=== PATIENT | female | born 1990 | race Caucasian/White ===

== ENCOUNTER 2016-10-08 17:19 | Emergency (ER) | payer OTHER ==
--- NOTE | 2016-10-08 18:33 | PD ---
HPI Chief Complaint Decreased movement Date Seen: Oct 08, 2016 Time Seen: 18:29 Travel History International Travel<30 Days: No Contact w/Intl Traveler<30Days: No Known Affected Area: No History of Present Illness HPI 26-year-old who is at 34 weeks and 2 days complaints of decreased movement. Although the baby is moving she states that the movements haven't changed in intensity. She saw Dr. Richard's nurse practitioner in the office today and was told that her fundal height was a little small and then an ultrasound will be set up for her in the near future. No nonstress test was done and she was concerned as no monitoring was initiated. The baby has been moving well since she arrived to the hospital. Para: 0 : 1 History Past Medical History Medical History: Denies Significant Hx Past Surgical History Surgical History: No Previous Surgery Family History Family History: Negative Social History Alcohol Use: No Tobacco Use: No Substance Abuse: No Review of Systems Except as stated in HPI: all other systems reviewed are Neg Physical Exam Narrative GENERAL: Well-nourished, well-developed patient. SKIN: Warm and dry. HEAD: Normocephalic and atraumatic. EYES: No scleral icterus. No injection or drainage. ENT: No nasal drainage noted. Mucous membranes pink. Airway patent. NECK: Supple, trachea midline. No JVD. CARDIOVASCULAR: Regular rate and rhythm without murmurs, gallops, or rubs. RESPIRATORY: Breath sounds equal bilaterally. No accessory muscle use. BREASTS: Bilateral exam showed no masses , no retractions, no nipple discharge. ABDOMEN/GI: Abdomen soft, non-tender, bowel sounds present, no rebound, no guarding Gravid to [-] weeks size Fundal Height: [-32] GENITOURINARY: Deferred FHT's: Category: [1-] Baseline: 140 Reactive: Moderate Variability: Moderate with accelerations Decels: Absent EXTREMITIES: No cyanosis or edema. BACK: Nontender without obvious deformity. No CVA tenderness. NEUROLOGICAL: Awake and alert. Motor and sensory grossly within normal limits. Five out of 5 muscle strength in all muscle groups. Normal speech. Data Data Vital Signs Reviewed: Yes MDM Plan Patient at 34 weeks gestation with decreased movement, baby is now moving back to normal with a category 1 heart rate tracing. She will follow up with Dr. Richard's office to be set up for a growth ultrasound and will call them tomorrow. Continue with kick counts and hydration. Diagnosis Diagnosis: Primary Impression: Decreased movement affecting management of in third trimester Additional Impression: 34 weeks gestation of Disposition: 01 DISCHARGE HOME Condition: Stable Patient Instructions: General Instructions, Having Your Baby: The Labor Process (GEN), Movement (ED) Departure Forms: Tests/Procedures Catherine Mccartney MD Oct 08, 2016 18:33
== END 2016-10-08 18:30 | disposition home or self-care (01) ==
LOC: HOBED 17:19
DX: O36.8130 Decreased fetal movements, third trimester, not applicable or unspecified (principal); Z3A.34 34 weeks gestation of pregnancy
CPT/HCPCS: 59025

== ENCOUNTER → 2016-10-11 | Outpatient (CLI) | payer OTHER ==
[~2016-10-11] MED LIST: IBUP-232 PO; OXYC1TAB63 PO; PREN29TA PO
== END ==
LOC: HPND 07:50
PROVIDERS: ATTEND Obstetrics & Gynecology
DX: O36.5930 Maternal care for other known or suspected poor fetal growth, third trimester, not applicable or unspecified (principal)
CPT/HCPCS: 76816

== ENCOUNTER 2016-10-22 10:52 | Emergency (ER) | payer OTHER ==
--- NOTE | 2016-10-22 11:50 | PD ---
HPI Chief Complaint elevated BP in Dr. Richard's clinic Date Seen: Oct 22, 2016 Travel History International Travel<30 Days: No Contact w/Intl Traveler<30Days: No Known Affected Area: No History of Present Illness HPI Ms. Robert is a 26 yo G[address] of [address]. Richard at 36 2/7 weeks (SAM 11/17/2016) who presents for recommendation of Dr. Richard's office due to SBP 140/80 (per patient). Patient also reports history of elevated blood pressure of SBP 145 approximately 2 weeks prior. Patient's interval blood pressures have been normal, with average systolic pressure of approximately 115. She denies history of high blood pressure prior to . Patient denies headaches; she reports increased blurriness when reading over the past several weeks but states that this is mild. Mild urinary urgency; no dysuria. Normal movement. No vaginal bleeding. Patient reports chest pain several weeks ago for which she was evaluated with EKG (which was normal per patient); she denies any pain since this time. Patient denies nausea/vomiting, leg swelling, or other symptoms. Patient reports largely unremarkable history with exception of small size on ultrasound. Per EMR, patient has history of borderline IUGR so has been receiving weekly NSTs. Last US was performed 10/16: (BPP 10/10. Normal amniotic fluid. Umbilical artery with borderline high S/D flow.) Patient's next US/NST is tomorrow. Patient states GBS performed today at Dr. Richard's office. Para: 0 : 1 History Past Medical History Narrative Medical Pyelonephritis Obstetric History Obstetric History G1 getting weekly NST's for IUGR? Past Surgical History Narrative Surgical [place] teeth removal Family History Narrative Family History Unspecified cancer HTN DM Unspecified heart problems Social History Alcohol Use: No Tobacco Use: No Substance Abuse: No Allergies-Medications (Allergen,Severity, Reaction): Coded Allergies: Amoxicillin (Unverified Allergy, Unknown, 10/22/16) Bactrim (Unverified Allergy, Unknown, 10/22/16) Tetracycline (Unverified Allergy, Unknown, 10/22/16) Review of Systems General / Constitutional: No: Fever, Chills Eyes: Visual changes (blurriness reading over past several weeks, mild) HENT: No: Headaches Cardiovascular: No: Chest Pain or Discomfort (prior chest pain- EKG performed and was normal) Respiratory: No: Short of Breath Gastrointestinal: No: Nausea, Vomiting, Abdominal Pain Genitourinary: Urgency, No: Dysuria Physical Exam BP 122/76, 118/71 HR 86 T 98.2 RR 18 Narrative GENERAL: Well-nourished, well-developed patient. SKIN: Warm and dry. HEAD: Normocephalic and atraumatic. EYES: No scleral icterus. No injection or drainage. ENT: No nasal drainage noted. Mucous membranes pink. Airway patent. NECK: Supple, trachea midline. No JVD. CARDIOVASCULAR: Regular rate and rhythm without murmurs. Normal perfusion RESPIRATORY: CTAB, normal rate ABDOMEN/GI: Abdomen soft, non-tender, bowel sounds present, no rebound, no guarding Gravid EXTREMITIES: No cyanosis or edema. BACK: Nontender without obvious deformity. No CVA tenderness. NEUROLOGICAL: Awake and alert. Motor and sensory function grossly within normal limits. GENITOURINARY: Uterine Contractions: None on EFM FHT's: Category: 1 Baseline: 150 Reactive: Y Variability: Mod Decels: None Data Data Vital Signs Reviewed: Yes MDM Medical Record Reviewed: Yes Narrative Course / MDM 26 yo G1 patient of Dr. Richard at 36 2/7 weeks (SAM 11/17/2016) -Clinic BP of 140/80 today; prior SBP 145 2 weeks ago -No maternal symptoms -Borderline IUGR, high umbilical S/D flow on US; receiving weekly NST's -Cat 1 rhythm on EFM -No evidence of contractions Plan: -Monitor EFM -Trend BP Interval: Multiple blood pressures obtained over 20 minute intervals: 122/76, 118/71, 123/ 76 Gestation maintained category 1 rhythm Updated Plan: Normal blood pressures at OB ED are reassuring at this time; discussed with patient that no intervention is needed at this time due to normalization of blood pressures. Discussed with patient that her prior elevated blood pressures at clinic may signify increased risk of developing worsening hypertension during and /or preeclampsia at a later point in . Patient will follow-up as scheduled: NST tomorrow per Dr. Richard and clinic visit with Dr. Richard next week Seen and discussed with Dr. Mccartney Diagnosis Diagnosis: Primary Impression: Elevated blood pressure reading Additional Impression: Disposition: 01 DISCHARGE HOME Condition: Stable Patient Instructions: General Instructions Edvin Miranda MD R2 Oct 22, 2016 11:50
== END 2016-10-22 11:58 | disposition home or self-care (01) ==
LOC: HOBED 10:52
DX: O13.3 Gestational [pregnancy-induced] hypertension without significant proteinuria, third trimester (principal); Z3A.36 36 weeks gestation of pregnancy
CPT/HCPCS: 59025

== ENCOUNTER 2016-10-29 10:34 | Emergency (ER) | payer OTHER ==
[2016-10-29 11:42] LABS: MEAN CORPUSCULAR HGB CONC 36.1 % (32.0-36.0)
[2016-10-29 11:56] LABS: AUTOMATED NEUTROPHIL # 14.6 TH/MM3 (1.8-7.7); BASOPHIL # 0.1 TH/MM3 (0-0.2); BASOPHIL % 0.3 % (0.0-2.0); EOSINOPHIL % 0.1 % (0.0-4.0); HEMATOCRIT 34.9 % (35.0-46.0); LYMPH % 11.9 % (9.0-44.0); LYMPHOCYTE # 2.1 TH/MM3 (1.0-4.8); MEAN CELL VOLUME 87.2 FL (80.0-100.0); MEAN CORPUSCULAR HEMOGLOBIN 31.4 PG (27.0-34.0); MONO % 5.5 % (0.0-8.0); NEUT % 82.2 % (16.0-70.0); PLATELET COUNT 240 TH/MM3 (150-450); WHITE BLOOD COUNT 17.7 TH/MM3 (4.0-11.0)
[2016-10-29 11:59] LABS: HEMO FLAGS AUTO DIFF
[2016-10-29 12:16] LABS: INDIRECT BILIRUBIN 0.2 MG/DL (0.0-0.8); TOTAL BILIRUBIN ADULT 0.3 MG/DL (0.2-1.0); URIC ACID 5.6 MG/DL (2.6-6.0)
[2016-10-29 12:42] LABS: SCAN/DIFF AUTO DIFF CONFIRMED
--- NOTE | 2016-10-29 12:47 | PD ---
HPI Travel History International Travel<30 Days: No Contact w/Intl Traveler<30Days: No Known Affected Area: No History of Present Illness HPI Ms. Robert is a 26 yo G[address] of [address] Richard at 37 2/7 weeks (SAM 11/17/2016) who presents for recommendation of Dr. Richard's office due to SBP 140 (per patient). Patient was previously seen for elevated SBP of 140; she also had elevated SBP of 145. No history of high blood pressure prior to . Patient denies headaches; she reports seeing stars. No dysuria. No vaginal bleeding. No chest pain or SOB No nausea/vomiting, leg swelling, or other symptoms. Normal movement. Per EMR, patient has history of borderline IUGR so has been receiving weekly NSTs. Last US was performed 10/16: (BPP 04/15. Normal amniotic fluid. Umbilical artery with borderline high S/D flow.) US 10/24 with normal BPP and FABIANO. Para: 0 : 1 History Past Medical History Narrative Medical Pyelonephritis Obstetric History Obstetric History G1 Past Surgical History Narrative Surgical [place] teeth removal Family History Narrative Family History Unspecified cancer HTN DM Unspecified heart problems Social History Alcohol Use: No Tobacco Use: No Substance Abuse: No Allergies-Medications (Allergen,Severity, Reaction): Coded Allergies: Amoxicillin (Unverified Allergy, Unknown, 10/22/16) Bactrim (Unverified Allergy, Unknown, 10/22/16) Tetracycline (Unverified Allergy, Unknown, 10/22/16) Review of Systems Eyes: Blurred Vision (seeing stars occasionally, chronic) HENT: Headaches (occasional, chronic) Cardiovascular: No: Chest Pain or Discomfort Respiratory: No: Short of Breath Gastrointestinal: No: Abdominal Pain Genitourinary: No: Urgency, Dysuria Physical Exam BP 117/70's HR 70's Afebrile Narrative GENERAL: Well-nourished, well-developed patient. SKIN: Warm and dry. HEAD: Normocephalic and atraumatic. EYES: No scleral icterus. No injection or drainage. ENT: No nasal drainage noted. Mucous membranes pink. Airway patent. NECK: Supple, trachea midline. No JVD. CARDIOVASCULAR: Regular rate and rhythm without murmurs. Normal perfusion RESPIRATORY: CTAB, normal rate ABDOMEN/GI: Abdomen soft, non-tender, bowel sounds present, no rebound, no guarding Gravid EXTREMITIES: No cyanosis or edema. NEUROLOGICAL: Awake and alert. Motor and sensory function grossly within normal limits. GENITOURINARY: Uterine Contractions: Sporadic contraction FHT's: Category: 1 Baseline: 145 Reactive: Y Variability: Mod Decels: None Data Data Orders Hepatic Functional Panel (10/29/16 11:39) Complete Blood Count With Diff (10/29/16 11:39) Uric Acid (10/29/16 11:39) Hold Clot (10/29/16 11:39) Labs Laboratory Tests Test 10/29/16 11:29 White Blood Count 17.7 Red Blood Count 4.00 Hemoglobin 12.6 Hematocrit 34.9 Mean Corpuscular Volume 87.2 Mean Corpuscular Hemoglobin 31.4 Mean Corpuscular Hemoglobin 36.1 Concent Red Cell Distribution Width 13.0 Platelet Count 240 Mean Platelet Volume 9.2 Neutrophils (%) (Auto) 82.2 Lymphocytes (%) (Auto) 11.9 Monocytes (%) (Auto) 5.5 Eosinophils (%) (Auto) 0.1 Basophils (%) (Auto) 0.3 Neutrophils # (Auto) 14.6 Lymphocytes # (Auto) 2.1 Monocytes # (Auto) 1.0 Eosinophils # (Auto) 0.0 Basophils # (Auto) 0.1 CBC Comment AUTO DIFF Differential Comment AUTO DIFF CONFIRMED Uric Acid 5.6 Total Bilirubin 0.3 Direct Bilirubin 0.1 Indirect Bilirubin 0.2 Aspartate Amino Transf 19 (AST/SGOT) Alanine Aminotransferase 23 (ALT/SGPT) Alkaline Phosphatase 92 Total Protein 7.0 Albumin 3.0 Band and Hold MDM Medical Record Reviewed: Yes Narrative Course / MDM 26 yo G1 patient of [address]. Richard at 37 2/7 weeks (SAM 11/17/2016) -Clinic SBP of 140 today; prior SBP's 140-145 -No maternal symptoms -10/24 US with normal BPP and FABIANO -Cat 1 rhythm on EFM -Rare contractions Plan: -Monitor EFM -Trend BP -Obtain PREE labs as baseline Interval: Patient normotensive in OB ED, SBP <120 CBC- WBC 17.7, Hgb 12.6, PLT 240 Uric acid 5.6 Transaminases, BILI wnl Updated Plan: Due to reassuring blood pressures and CBC, uric acid, LFTs in OB ED, patient deemed stable for discharge home and follow-up with PCP in near future Again discussed with patient that she may be at risk of having hypertension during and/or preeclampsia at a later point in . Diagnosis Diagnosis: Primary Impression: Elevated blood pressure reading Disposition: 01 DISCHARGE HOME Condition: Stable Referrals: Claudette Richard MD 1 week Patient Instructions: General Instructions Edvin Miranda MD R2 Oct 29, 2016 12:47
--- NOTE | 2016-10-29 12:52 | PD ---
History of Present Illness Date Seen: Oct 29, 2016 History of Present Illness This patient is 26-year-old white female at 37 [address] Richard sent over for PI eval, patient has been having a headache and was sent over for blood pressure checks. She denies pain bleeding or ruptured membranes. Baby is active. heart rate tracing is reactive. her PIH lab all within normal limits. Her blood pressures been in the 110s over 60s here, she has no protein in her urine. The patient discharged today to return to home bed rest which she's been doing according to Dr. Richard's instruction Pete Rubin II, MD Oct 29, 2016 12:51
== END 2016-10-29 14:08 | disposition home or self-care (01) ==
LOC: HOBED 10:34
DX: O13.3 Gestational [pregnancy-induced] hypertension without significant proteinuria, third trimester (principal); Z3A.37 37 weeks gestation of pregnancy
CPT/HCPCS: 59025; 80076; 84550; 85025

== ENCOUNTER 2016-11-05 11:17 | Emergency (ER) | payer OTHER ==
--- NOTE | 2016-11-05 11:47 | PD ---
HPI Chief Complaint elevated BP in clinic Date Seen: November 05, 2016 Travel History International Travel<30 Days: No Contact w/Intl Traveler<30Days: No History of Present Illness HPI Ms. Robert is a 26 yo G[address] of [address] Richard at 38 2/7 weeks (SAM 11/17/2016) who presents for laboratory evaluation and monitoring per recommendation of Dr. Richard. Patient states that she had blood pressure of approximately 130s/70s in clinic today and persistent visual abnormalities (patient has been seen spot for approximately one month). Patient also reports intermittent headache. Per discussion with patient in EMR, patient is had intermittent systolic pressures in 140s during . Patient was last evaluated 10/29 for elevated blood pressure; CBC and CMP did not reveal platelet or LFT abnormalities. Patient reports mild hand swelling but denies lower extremity swelling. Patient does not report chest pain, shortness of breath, dysuria, nausea, or bowel abnormalities. Patient reports normal movement. No vaginal bleeding or concern for rupture membranes. Per EMR, patient has history of borderline IUGR so has been receiving weekly NSTs. Last US was performed 10/30: (BPP 10/10. Normal amniotic fluid. Umbilical artery with normal flow.) GBS negative : 1 History Past Medical History Narrative Medical Pyelonephritis Obstetric History Obstetric History G1 getting weekly NST's - prior borderline IUGR Past Surgical History Narrative Surgical [place] teeth removal Family History Narrative Family History Unspecified cancer HTN DM Unspecified heart problems Social History Alcohol Use: No Tobacco Use: No Substance Abuse: No Allergies-Medications (Allergen,Severity, Reaction): Coded Allergies: Amoxicillin (Unverified Allergy, Unknown, 10/22/16) Bactrim (Unverified Allergy, Unknown, 10/22/16) Tetracycline (Unverified Allergy, Unknown, 10/22/16) Review of Systems General / Constitutional: No: Fever Eyes: Visual changes HENT: Headaches Cardiovascular: No: Chest Pain or Discomfort Respiratory: No: Short of Breath Gastrointestinal: No: Nausea Genitourinary: No: Urgency Physical Exam BP 125/82 HR 98 RR 16 T 98 Narrative GENERAL: Well-nourished, well-developed patient. SKIN: Warm and dry. HEAD: Normocephalic and atraumatic. EYES: No scleral icterus. No injection or drainage. ENT: No nasal drainage noted. Mucous membranes pink. Airway patent. CARDIOVASCULAR: Regular rate and rhythm without murmurs, gallops, or rubs. RESPIRATORY:CTAB, normal rate ABDOMEN/GI: Abdomen soft, non-tender, bowel sounds present, no rebound, no guarding Gravid EXTREMITIES: No cyanosis or edema NEUROLOGICAL: Awake and alert. Motor and sensory function grossly within normal limits. GENITOURINARY: Membranes: Intact Uterine Contractions: occasional, >q5 min FHT's: Category: 1 Baseline: 150 Reactive: Y Variability: Mod Decels: None Data Data Vital Signs Reviewed: Yes Orders Cbc No Diff, Includes Plts (11/05/16 11:27) Comprehensive Metabolic Panel (11/05/16 11:28) Uric Acid (11/05/16 11:28) Urinalysis - C+S If Indicated (11/05/16 11:28) MDM Medical Record Reviewed: Yes Narrative Course / MDM 26 yo G1 patient of Dr. Richard at 38 2/7 weeks (SAM 11/17/2016) -Clinic BP in 130's/80's; prior SBPs in 140's -Persistent visual abnormality (sees spot x1 mo) and intermittent headaches -GBS- -Recent BPP 04/15 10/30 -Cat 1 rhythm on EFM -Occasional contractions Plan: -Monitor EFM -Trend BP -Will repeat CBC, CMP, urinary protein assessment, uric acid labs Edvin Miranda MD R2 November 05, 2016 11:47
[2016-11-05 12:49] LABS: BACTERIA, URINE RARE /hpf; BLOOD, URINE SMALL (NEG); COMMENT (UR) CULT NOT INDICATED; CULTURE IF INDICATED CULT NOT INDICATED; GLUCOSE,URINE NEG (NEG); KETONE, URINE NEG (NEG); NITRITE,URINE NEG (NEG); SQUAMOUS EPITHELIAL CELL URINE 3 /hpf (0-5); URINE COLOR LIGHT-YELLOW (YELLW/STRAW)
[2016-11-05 12:57] LABS: HEMATOCRIT 35.7 % (35.0-46.0); MEAN CELL VOLUME 87.4 FL (80.0-100.0); MEAN CORPUSCULAR HEMOGLOBIN 30.7 PG (27.0-34.0); MEAN CORPUSCULAR HGB CONC 35.1 % (32.0-36.0); PLATELET COUNT 238 TH/MM3 (150-450); RED BLOOD COUNT 4.09 MIL/MM3 (4.00-5.30); RED CELL DISTRIBUTION WIDTH 13.2 % (11.6-17.2); REVIEW FLAG FINAL; WHITE BLOOD COUNT 17.5 TH/MM3 (4.0-11.0)
[2016-11-05 13:17] LABS: ALKALINE PHOSPHATASE 99 U/L (45-117); ALT (GPT) 24 U/L (10-53); ANION GAP 12 MEQ/L (5-15); AST (GOT) 24 U/L (15-37); BICARBONATE 21.7 MEQ/L (21.0-32.0); BLOOD UREA NITROGEN 11 MG/DL (7-18); CHLORIDE 105 MEQ/L (98-107); GLOMERULAR FILTRATION RATE 113 ML/MIN (>89); POTASSIUM 3.9 MEQ/L (3.5-5.1); SODIUM (NA) 139 MEQ/L (136-145); TOTAL BILIRUBIN ADULT 0.3 MG/DL (0.2-1.0); URIC ACID 5.8 MG/DL (2.6-6.0)
--- NOTE | 2016-11-05 14:19 | PD ---
HPI Chief Complaint 6-year-old white female at [address] Richard sent over for PI eval, she has no OB problems no pain bleeding or ruptured membranes. Baby is active and heart rate tracing is reactive. She has had a persistent visual changes spots in front of her vision and eyes and her doctor is worried about that Date Seen: November 05, 2016 Travel History International Travel<30 Days: No Contact w/Intl Traveler<30Days: No Known Affected Area: No History of Present Illness HPI Primiparous patient with mild gestational hypertension and some visual changes at 38 weeks Para: 0 : 1 History Social History Alcohol Use: No Tobacco Use: No Substance Abuse: No Allergies-Medications (Allergen,Severity, Reaction): Coded Allergies: Amoxicillin (Unverified Allergy, Unknown, 10/22/16) Bactrim (Unverified Allergy, Unknown, 10/22/16) Tetracycline (Unverified Allergy, Unknown, 10/22/16) Review of Systems General / Constitutional: No: Fever, Weight Gain, Chills, Other Eyes: Visual changes, No: Diploplia, Blurred Vision, Pain, Photophobia HENT: No: Headaches, Vertigo, Lightheadedness Cardiovascular: No: Irregular Rhythm, Chest Pain or Discomfort, Palpitations, Tachycardia, Syncope, Varicosities, Edema, Cyanosis Respiratory: No: Cough, Short of Breath, Other Gastrointestinal: No: Nausea, Vomiting, Diarrhea Genitourinary: No: Decreased Urinary Output, Oliguria Musculoskeletal: No: Limited ROM, Weakness, Cramping, Edema, Pain Skin: No Rash, No Itching, No Dryness, No Lumps, No Change in Pigmentation, No Change in Nails, No Alopecia, No Lesions Neurologic: No: Weakness, Dizziness, Syncope, Focal Abnormalities, Coordination Problem, Headache, Slurred Speech, Seizures Psychiatric: No: Depression, Suicidal Ideations, Homicidal Ideation Endocrine: No: Heat Intolerance, Cold Intolerance, Polydipsia, Polyuria, Other Physical Exam Narrative GENERAL: Well-nourished, well-developed patient. SKIN: Warm and dry. HEAD: Normocephalic and atraumatic. EYES: No scleral icterus. No injection or drainage. ENT: No nasal drainage noted. Mucous membranes pink. Airway patent. NECK: Supple, trachea midline. No JVD. CARDIOVASCULAR: Regular rate and rhythm without murmurs, gallops, or rubs. RESPIRATORY: Breath sounds equal bilaterally. No accessory muscle use. BREASTS: Bilateral exam showed no masses , no retractions, no nipple discharge. ABDOMEN/GI: Abdomen soft, non-tender, bowel sounds present, no rebound, no guarding Gravid to [-38] weeks size Fundal Height: [38-] FHT's: Category: [1-] Baseline: [133-] Reactive: [-yes] Variability: [-mod] Decels: [none-] EXTREMITIES: No cyanosis or edema. BACK: Nontender without obvious deformity. No CVA tenderness. NEUROLOGICAL: Awake and alert. Motor and sensory grossly within normal limits. Five out of 5 muscle strength in all muscle groups. Normal speech. Data Data Orders Cbc No Diff, Includes Plts (11/05/16 11:27) Comprehensive Metabolic Panel (11/05/16 11:28) Uric Acid (11/05/16 11:28) Urinalysis - C+S If Indicated (11/05/16 11:28) Labs Laboratory Tests Test 11/05/16 11:30 White Blood Count 17.5 Red Blood Count 4.09 Hemoglobin 12.5 Hematocrit 35.7 Mean Corpuscular Volume 87.4 Mean Corpuscular Hemoglobin 30.7 Mean Corpuscular Hemoglobin 35.1 Concent Red Cell Distribution Width 13.2 Platelet Count 238 Mean Platelet Volume 9.7 Urine Color LIGHT-YELLOW Urine Turbidity CLEAR Urine pH 7.0 Urine Specific Outlook 1.006 Urine Protein NEG Urine Glucose (UA) NEG Urine Ketones NEG Urine Occult Blood SMALL Urine Nitrite NEG Urine Bilirubin NEG Urine Urobilinogen LESS THAN 2.0 Urine Leukocyte Esterase LARGE Urine WBC 2 Urine Squamous Epithelial 3 Cells Urine Bacteria RARE Microscopic Urinalysis Comment CULT NOT INDICATED Sodium Level 139 Potassium Level 3.9 Chloride Level 105 Carbon Dioxide Level 21.7 Anion Gap 12 Blood Urea Nitrogen 11 Creatinine 0.64 Estimat Glomerular Filtration 113 Rate Random Glucose 80 Uric Acid 5.8 Calcium Level 8.9 Total Bilirubin 0.3 Aspartate Amino Transf 24 (AST/SGOT) Alanine Aminotransferase 24 (ALT/SGPT) Alkaline Phosphatase 99 Total Protein 6.9 Albumin 2.9 MDM Interpretation(s) Since a 26-year-old primiparous patient at 38 weeks sent over from her doctor's office for PI eval, all lab is within normal limits, urinalysis negative for protein blood pressures been stable all less than 140/90 Plan I discussed this case with and he agreed that we could send the patient home today to bed rest only getting epidural bathroom and eat in to see him in 2 days for repeat evaluation Diagnosis Diagnosis: Primary Impression: Visual changes Disposition: 01 DISCHARGE HOME Condition: Stable Patient Instructions: General Instructions Departure Forms: Tests/Procedures Pete Rubin II, MD November 05, 2016 14:18
[2016-11-06] MEDS ORDERED: PREN29TA PO (10:44)
== END 2016-11-05 14:30 | disposition home or self-care (01) ==
LOC: HOBED 11:17
DX: O26.93 Pregnancy related conditions, unspecified, third trimester (principal); Z3A.38 38 weeks gestation of pregnancy; H53.9 Unspecified visual disturbance
CPT/HCPCS: 59025; 80053; 81001; 84550; 85027

== ENCOUNTER 2016-11-06 10:17 | Inpatient (IN) | payer OTHER ==
[~2016-11-06] VITALS: Ht 162.6 cm; Wt 90.3 kg
[2016-11-06] MEDS ORDERED: PREN29TA PO (10:44)
[2016-11-06 11:59] LABS: BASOPHIL # 0.1 TH/MM3 (0-0.2); BASOPHIL % 0.3 % (0.0-2.0); EOSINOPHIL # 0.1 TH/MM3 (0-0.4); EOSINOPHIL % 0.5 % (0.0-4.0); HEMATOCRIT 36.9 % (35.0-46.0); HEMO FLAGS DIFF FINAL; LYMPH % 15.4 % (9.0-44.0); LYMPHOCYTE # 2.6 TH/MM3 (1.0-4.8); MEAN CELL VOLUME 87.8 FL (80.0-100.0); MEAN CORPUSCULAR HEMOGLOBIN 30.1 PG (27.0-34.0); MEAN CORPUSCULAR HGB CONC 34.2 % (32.0-36.0); MONO % 6.1 % (0.0-8.0); NEUT % 77.7 % (16.0-70.0); PLATELET COUNT 241 TH/MM3 (150-450); WHITE BLOOD COUNT 16.7 TH/MM3 (4.0-11.0)
[2016-11-06] MEDS ORDERED: LACTATED RINGER'S 1000 ML INJ 1,000 ML IV PRN (12:24)
[2016-11-06] MEDS ORDERED: SODIUM CHLOR 0.9% 1000 ML INJ 1,000 ML OTHER PRN (12:24)
[2016-11-06 12:29] LABS: BACTERIA, URINE RARE /hpf; BLOOD, URINE NEG (NEG); COMMENT (UR) CULT NOT INDICATED; CULTURE IF INDICATED CULT NOT INDICATED; GLUCOSE,URINE NEG (NEG); HYALINE CAST, URINE 1 /lpf (RARE); KETONE, URINE NEG (NEG); MUCUS URINE FEW /lpf (OCC); NITRITE,URINE NEG (NEG); SQUAMOUS EPITHELIAL CELL URINE 3 /hpf (0-5); URINE COLOR YELLOW (YELLW/STRAW)
[2016-11-06] MEDS ORDERED: OXYTOCIN 30 UNITS-500ML PREMIX 500 ML IV ONE (12:30)
[2016-11-06] MEDS ORDERED: LIDOCAINE HCL 1% 50 ML VIAL INFIL PRN (12:30)
[2016-11-06] MEDS ORDERED: SODIUM CHLORIDE 0.9% FLUSH 10 ML FLUSH IV FLUSH PRN (12:30)
[2016-11-06] MEDS ORDERED: ONDANSETRON HCL 4 MG/2 ML VIAL IV PRN (12:30)
[2016-11-06] MEDS ORDERED: SODIUM CHLORID 0.9% 500 ML INJ 500 ML IV PRN (12:30)
[2016-11-06] MEDS ORDERED: LIDOCAINE HCL 1% 50 ML VIAL I-DERMAL PRN (12:30)
[2016-11-06] MEDS ORDERED: MINERAL OIL 10 ML VIAL TOPICAL PRN (12:30)
[2016-11-06] MEDS ORDERED: CITRIC ACID-SODIUM CITRATE LIQ 30 ML UDC PO SCH (12:30)
[2016-11-06] MEDS ORDERED: SODIUM CHLOR 0.9% 1000 ML INJ 1,000 ML IV PRN (12:44)
[2016-11-06] MEDS ORDERED: MISOPROSTOL 25 MCG SUPP VAGINAL ONE ×2 (13:00→18:15)
[2016-11-06] MEDS: LACTATED RINGER'S 1000 ML INJ 1,000 ML IV SCH ×3 (13:03→21:00)
[2016-11-06 13:09] VITALS: RESP 18
[2016-11-06 13:10] VITALS: BP 127/70; PULSE 73
[2016-11-06 13:56] VITALS: RESP 18
[2016-11-06 13:57] VITALS: BP 113/72; PULSE 75
[2016-11-06 13:59] VITALS: TEMP 98.3
--- NOTE | 2016-11-06 14:06 | MH ---
cc: JOSETTE RICHARD DATE OF ADMISSION: 11/06/2016 ADMISSION DIAGNOSIS 1. Intrauterine at 38+ weeks. 2. Oligohydramnios. HISTORY OF PRESENT ILLNESS Ms. Robert is a 26-year-old white female, para 0-0-0-0 who by ultrasound and early dates puts her at 38+ weeks. She was having some problems with blood pressure and also with scotoma and borderline IUGR. Because of these problems they recommended she get once weekly testing. Testing today for the biophysical was excellent but her amniotic fluid level was 4. Because of this we are admitting her. I had a long discussion about risks and benefits of induction versus primary section. Her cervix is really not inducible. Her Eason score is terrible but will try to induce her with some Cytotec tonight and give her Pitocin tomorrow, and hopefully can accomplish a vaginal delivery. PAST OB HISTORY Para 0-0-0-0. Blood type is A+. Her GBS is negative. All her labs are normal. 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 and GC were also negative in April 2016. PAST SURGICAL HISTORY [place] tooth removal. PAST MEDICAL HISTORY Hidradenitis suppurativa and psoriasis. SOCIAL HISTORY She is . She does not smoke, drink or take drugs. FAMILY HISTORY Her family history is remarkable for high blood pressure, high cholesterol, alcohol and drug abuse, and lung cancer and melanoma in her father. ALLERGIES 1. TETRACYCLINE. 2. AMOXICILLIN. 3. SULFA DRUGS. MEDICATIONS Current medications are vitamins one p.o. q. day. PHYSICAL EXAMINATION GENERAL: A well-developed, well-nourished female in no acute distress. She is resting comfortably in the bed. VITAL SIGNS: Blood pressure is 128/72. Her weight is 199. HEENT: Normocephalic, atraumatic. NECK: Supple. Trache is midline. No thyromegaly or adenopathy. CHEST: Clear to auscultation. HEART: Regular rate without murmur or gallop. ABDOMEN: Gravid, nontender. The fundus is nontender. PELVIC: External genitalia is normal. Vagina is clean. The cervix is closed, non-effaced and -1 station. EXTREMITIES: No clubbing, cyanosis, edema. Her DTRs are slightly brisk at +3. ASSESSMENT AND PLAN 1. Intrauterine at 38+ weeks. 2. Oligohydramnios. Will go ahead and give her Cytotec overnight and try to give her some Pitocin in the morning. Hopefully we can accomplish a vaginal delivery. 3. Labile blood pressures during the . She has been seen on the unit several times to rule out preeclampsia. Her most recent visit was yesterday and everything was normal. She was having some scotoma, however, this is completely resolved now. R. Josette Richard MD RJV/KELLEY /1:45 PM /1:54 PM
[2016-11-06] MEDS ORDERED: ZOLPIDEM TARTRATE 5 MG TAB PO PRN (18:15)
[2016-11-06] MEDS ORDERED: SODIUM CHLORIDE 0.9% FLUSH 10 ML FLUSH IV FLUSH SCH (21:00)
--- NOTE | 2016-11-06 22:27 | PD.LABORPN ---
Subjective Subjective Called to evaluate patient by Dr Richard. Cytotec given for ripening at 38-39 weeks gestation due to oligohydramnios. Objective Objective Pelvic Exam: Cervix: [midposition-] Dilatation: [1-2] Effacement: [50-] Station: [-2-] Presentation: [-] Membranes: [intact or ruptured]Artificial rupture of membranes, IUPC and FSE placed. Clear fluid obtained Uterine Contractions: [-] FHT's: Category: [2-] Baseline: [150-] Reactive: [-moderate Variability: [-moderate] Decels: [-variable and late FHR decelerations with approx 50% of contractions ] Amnioinfusion started, left lateral maternal position, and supplemental oxygen with resolution of decelerations and Category 1 FHR tracing. Assessment/Plan Assessment and Plan 38-39 weeks with decreased amniotic fluid, s/p cytotec placement at 1800. Amnioinfusion for variable declerations, resolution at this point of FHR decelerations Catherine Mccartney MD November 06, 2016 22:27
[2016-11-07] MEDS: LACTATED RINGER'S 1000 ML INJ 1,000 ML IV SCH (02:07)
[2016-11-07] MEDS ORDERED: OXYTOCIN 30 UNITS/NS 500ML PREMIX IV SCH ×2 (03:00)
--- NOTE | 2016-11-07 07:03 | PD.LABORPN ---
Subjective Subjective Doing well, got some sleep UCs are painful but not enough for medicine Objective Objective Pelvic Exam: Cervix: [] Dilatation: [2-3] Effacement: [-] Station: [-] Presentation: [-] Membranes: [intact or ruptured] Uterine Contractions: [-] FHT's: Category: [1] Baseline: [150s] Reactive: [yes] Variability: [-] Decels: [occasional varible, occasional possible lates] Assessment/Plan Assessment and Plan 1. IUP at 38/4 2. Oligiohydramnios for induction, Dr Mccartney placed IUPC last nite and she is having occasional decels but the strip looks good. Will start low dose pitocin as she is having occasional doublets. Feel the chance of a vaginal delivery is fairly good but have discussed the option of a C/S in some detail. 3. Labile BPs she is normotensive during this admission. No more scotoma. Claudette Richard MD November 07, 2016 07:03
[2016-11-07] MEDS ORDERED: fentaNYL 2MCG-BUPIV 0.125% INJ 100 ML ONE (07:56)
[2016-11-07] MEDS ORDERED: ePHEDrine/NS 25 MG/5 ML SYR ONE ×2 (07:56→09:56)
[2016-11-07] MEDS ORDERED: MORPHINE SULFATE PF 5 MG/10 ML VIAL ONE (09:56)
[2016-11-07] MEDS ORDERED: ONDANSETRON HCL 4 MG/2 ML VIAL ONE (09:56)
[2016-11-07] MEDS ORDERED: OXYTOCIN 10 UNIT/ML AMP ONE (09:56)
[2016-11-07] MEDS ORDERED: ceFAZolin INJ 1,000 MG VIAL ONE (10:04)
[2016-11-07] MEDS ORDERED: fentaNYL 2MCG-BUPIV 0.125% 100 ML EPIDURAL SCH (10:15)
[2016-11-07] MEDS ORDERED: DO NOT ADMINISTER ANTICOAGULANTS PRN (10:15)
[2016-11-07] MEDS ORDERED: ePHEDrine/NS 25 MG/5 ML SYR IV PRN (10:15)
[2016-11-07] MEDS ORDERED: LACTATED RINGER'S 1000 ML IV SCH (10:15)
[2016-11-07] MEDS ORDERED: LACTATED RINGER'S 1000 ML IV ONE (10:15)
[2016-11-07] MEDS ORDERED: NO SYSTEM NARCOTICS PRN (10:15)
[2016-11-07] MEDS ORDERED: ceFAZolin 2 GM PREMIX 50 ML IV SCH (10:30)
[2016-11-07] MEDS ORDERED: CITRIC ACID-SODIUM CITRATE LIQ 30 ML UDC PO SCH (10:30)
[2016-11-07] MEDS ORDERED: oxyCODONE/ACETAMINOPHEN 5 MG/325 MG TAB PO PRN (11:45)
[2016-11-07] MEDS ORDERED: ACETAMINOPHEN 1000 MG/100 ML VIAL IV ONE ×2 (11:45→12:10)
[2016-11-07] MEDS ORDERED: SODIUM CHLORIDE 0.9% FLUSH 10 ML FLUSH IV FLUSH PRN (11:45)
[2016-11-07] MEDS ORDERED: DOCUSATE SODIUM 50 MG/SENNA 8.6 MG TAB PO PRN (11:45)
[2016-11-07] MEDS ORDERED: SIMETHICONE 80 MG CHEWABLE TAB PO PRN (11:45)
[2016-11-07] MEDS ORDERED: OXYTOCIN 30 UNITS-500ML PREMIX 500 ML IV ONE (11:45)
[2016-11-07] MEDS ORDERED: LACTATED RINGER'S 1000 ML INJ 1,000 ML IV ONE (12:05)
[2016-11-07] MEDS ORDERED: OXYTOCIN 30 UNITS-500ML PREMIX 500 ML ONE (12:10)
--- NOTE | 2016-11-07 12:32 | MP ---
cc: JOSETTE RICHARD DATE OF SURGERY 11/07/2016 PREOPERATIVE DIAGNOSIS 1. Intrauterine at 38 weeks 4 days 2. Borderline IUGR 3. Oligohydramnios 4. Non-reassuring strip POSTOPERATIVE DIAGNOSIS 1. Intrauterine at 38 weeks 4 days 2. Borderline IUGR 3. Oligohydramnios 4. Non-reassuring strip PROCEDURE Primary low transverse section ANESTHESIA Epidural SURGEON Bry Richard MD FINDINGS A normal female infant with good 's, weight 5 pounds 4 ounces, normal uterus, normal tubes, normal ovaries, normal cul-de-sacs. COMPLICATIONS None COUNTS Correct ESTIMATED BLOOD LOSS 500 cc FLUIDS Crystalloids CONDITION The patient tolerated procedure well and went to the recovery room in good condition. INDICATIONS FOR THE PROCEDURE This patient was being seen by the diagnostics yesterday and was found to have oligohydramnios. She had been seen several times for borderline high blood pressure, but that was not the issue. She did have scotoma, but that has resolved as well. Because of the oligohydramnios and her cervix needed to be ripened, we put her in last night. She did well. She had a couple variables starting off, but nothing of too much concern. She came in early this morning. She was still having some variables with occasional lates, but I felt like there was a descent chance that she would be able to have this baby vaginal since it was so small, but probably did not have a great reserve. Right before the surgery, she started having repetitive lates and despite positioning, IV fluid bolus, nothing helped and we decided to proceed with a section for a non-reassuring strip. PROCEDURE IN DETAIL The patient was taken to the operating room, identified by name band and verbally. The time out was done and patient was prepped and draped in the usual sterile fashion for section. A Pfannenstiel incision was made, carried down to the fascia. The fascia was taken off the rectus muscle by blunt and sharp dissection. The rectus muscles were spread bluntly and the peritoneum entered under direct vision without difficulty. The incision was extended and a bladder blade was placed. A bladder flap was created in the usual fashion and the uterus was incised transversely along the lower uterine segment. Once the uterine cavity was entered, clear fluid was noted. The baby's head was very low in the pelvis after pushing for two hours and the vertex was grasped. With fundal pressure, we could not quite get the head to deliver, so we used a suction device which the baby delivered easily. The hypopharynx and nasopharynx were suctioned and the remainder of the infant was delivered without difficulty. The cord doubly clamped and cut and handed to the resuscitation team who was present. The cord blood was obtained and the placenta was delivered manually. The uterus was curettaged twice with a wet lap and the uterine incision was repaired with 0 Vicryl in a running locking fashion in two layers, the second layer imbricating the first. Once this had been accomplished, all incisions were carefully inspected. Hemostasis was excellent. The uterus was delivered back into the abdomen and the gutters were cleaned of blood and debris. The rectus muscles were reapproximated with 0 Vicryl in a running fashion and the fascia was repaired with 0 Vicryl in a running fashion bilaterally. The subcu was repaired with two layers of 3-0 Vicryl and the skin was repaired with a 4-0 Monocryl in a subcuticular fashion. The wound was sterilely dressed. She tolerated the procedure well and went to the recovery room in satisfactory condition. R. MD ANGELES Aguirre/DYLAN /11:40 AM /12:23 PM
[2016-11-07 13:30] VITALS: BP 116/70; PULSE 65; RESP 16; TEMP 97.9
[2016-11-07] MEDS ORDERED: NON-FORMULARY DRUG IM ONE (16:00)
[2016-11-07] MEDS ORDERED: LACTATED RINGER'S 1000 ML INJ 1,000 ML IV SCH (16:39)
[2016-11-07 17:14] VITALS: BP 134/75; PULSE 62; RESP 14; TEMP 98.4
[2016-11-07 19:30] VITALS: BP 117/77; PULSE 65; RESP 18; TEMP 98.5
[2016-11-07] MEDS ORDERED: SODIUM CHLORIDE 0.9% FLUSH 10 ML FLUSH IV FLUSH SCH (21:00)
[2016-11-07] MEDS: ONDANSETRON HCL 4 MG/2 ML VIAL IV PUSH PRN (21:23)
[2016-11-07] MEDS: oxyCODONE/ACETAMINOPHEN 5 MG/325 MG TAB PO PRN (21:23)
[2016-11-07] MEDS: IBUPROFEN 600 MG TAB PO PRN (21:24)
[2016-11-07] MEDS ORDERED: OXYTOCIN 30 UNITS-500ML PREMIX 500 ML IV PRN (21:45)
[2016-11-08 06:00] VITALS: BP 130/81; PULSE 83; RESP 16; TEMP 98.4
[2016-11-08 06:05] LABS: AUTOMATED NEUTROPHIL # 12.2 TH/MM3 (1.8-7.7); BASOPHIL % 0.3 % (0.0-2.0); EOSINOPHIL % 0.2 % (0.0-4.0); HEMATOCRIT 29.9 % (35.0-46.0); HEMO FLAGS DIFF FINAL; LYMPH % 15.6 % (9.0-44.0); LYMPHOCYTE # 2.4 TH/MM3 (1.0-4.8); MEAN CELL VOLUME 88.6 FL (80.0-100.0); MEAN CORPUSCULAR HEMOGLOBIN 30.4 PG (27.0-34.0); MEAN CORPUSCULAR HGB CONC 34.3 % (32.0-36.0); MONO % 5.8 % (0.0-8.0); NEUT % 78.1 % (16.0-70.0); PLATELET COUNT 177 TH/MM3 (150-450); RED BLOOD COUNT 3.37 MIL/MM3 (4.00-5.30); RED CELL DISTRIBUTION WIDTH 13.1 % (11.6-17.2); WHITE BLOOD COUNT 15.6 TH/MM3 (4.0-11.0)
[2016-11-08] MEDS: oxyCODONE/ACETAMINOPHEN 5 MG/325 MG TAB PO PRN ×4 (06:07→20:28)
[2016-11-08] MEDS: ONDANSETRON HCL 4 MG/2 ML VIAL IV PUSH PRN (06:08)
[2016-11-08] MEDS: IBUPROFEN 600 MG TAB PO PRN ×3 (06:08→20:28)
[2016-11-08 07:42] VITALS: BP 123/80; PULSE 95; RESP 17; TEMP 97.5
--- NOTE | 2016-11-08 08:04 | HHI.OB ---
Subjective Post Operative Day: 1 Remarks Doing well , pain is well controlled Baby is good. Eating is ok Objective Vitals/I&O Vital Signs Date Time Temp Pulse Resp B/P Pulse Ox O2 Delivery O2 Flow Rate FiO2 11/08/16 07:42 97.5 95 17 123/80 11/08/16 06:00 98.4 11/08/16 06:00 83 16 130/81 11/07/16 19:30 98.5 65 18 117/77 11/07/16 17:14 98.4 62 14 134/75 11/07/16 13:30 97.9 11/07/16 13:30 65 16 116/70 Result Diagram: 11/08/16 0505 Objective Remarks GENERAL: Well-nourished, well-developed patient. CARDIOVASCULAR: Regular rate and rhythm without murmurs, gallops, or rubs. RESPIRATORY: Breath sounds equal bilaterally. No accessory muscle use. ABDOMEN/GI: Abdomen soft, non-tender, bowel sounds present. Incision: Clean, dry and intact. Fundus: Firm, non-tender at umbilicus. GENITOURINARY: Light to moderate bleeding. EXTREMITIES: No cyanosis or edema, non-tender, without signs of DVT. Medications and IVs Current Medications Medications (Trade) Dose Ordered Sig/Alma Delia Route Start Time Stop Time Status Last Admin (Lr 1000 ml Inj) 1,000 ml @ 100 mls/hr Q10H IV 11/07/16 16:39 11/08/16 12:38 (NS Flush) 2 ml BID IV FLUSH 11/07/16 21:00 11/07/16 21:26 (NS Flush) 2 ml UNSCH PRN IV FLUSH 11/07/16 11:45 (Mylicon Chew) 80 mg QID PRN PO 11/07/16 11:45 (Motrin) 600 mg Q6H PRN PO 11/07/16 11:45 11/08/16 06:08 (Percocet 5-325 Mg) 1 tab Q4H PRN PO 11/07/16 11:45 11/08/16 06:07 (Percocet 5-325 Mg) 2 tab Q4H PRN PO 11/07/16 11:45 (Chantel-Colace) 2 tab Q12H PRN PO 11/07/16 11:45 (M-M-R Ii Inj) 0.5 ml ONCE ONCE SQ 11/08/16 16:00 11/08/16 16:01 (Boostrix Inj) 0.5 ml ONCE ONCE IM 11/08/16 16:00 11/08/16 16:01 (Zofran Inj) 4 mg Q6H PRN IV PUSH 11/07/16 11:45 11/08/16 06:08 Assessment/Plan Assessment and Plan POD #1 Doing well Routine care. Claudette Richard MD November 08, 2016 08:04
[2016-11-08] MEDS ORDERED: IBUP-232 PO (08:07)
[2016-11-08] MEDS ORDERED: OXYC1TAB63 PO (08:07)
[2016-11-08] MEDS ORDERED: DIPHTH/TETANUS/ACEL PERTUSSIS (BOOSTER) 0.5 ML VIAL/PFS IM ONE (16:00)
[2016-11-08] MEDS ORDERED: MEASLES, MUMPS, RUBELLA VACCINE 0.5 ML VIAL SQ ONE (16:00)
[2016-11-08 19:45] VITALS: BP 116/73; PULSE 81; RESP 16; TEMP 98.8
[2016-11-09] MEDS: oxyCODONE/ACETAMINOPHEN 5 MG/325 MG TAB PO PRN ×3 (01:51→12:43)
[2016-11-09] MEDS: IBUPROFEN 600 MG TAB PO PRN (08:35)
[2016-11-09 08:54] VITALS: BP 124/72; PULSE 98; RESP 16; TEMP 98
[2016-11-09 09:46] VITALS: RESP 18
--- NOTE | 2016-11-09 12:21 | HHI.OB ---
Subjective Post Operative Day: 2 Remarks doing very well milk coming in Objective Vitals/I&O Vital Signs Date Time Temp Pulse Resp B/P Pulse Ox O2 Delivery O2 Flow Rate FiO2 11/09/16 09:46 18 11/09/16 09:46 18 11/09/16 08:54 98.0 98 16 124/72 11/08/16 19:45 98.8 81 16 116/73 Result Diagram: 11/08/16 0505 Objective Remarks GENERAL: Well-nourished, well-developed patient. CARDIOVASCULAR: Regular rate and rhythm without murmurs, gallops, or rubs. RESPIRATORY: Breath sounds equal bilaterally. No accessory muscle use. ABDOMEN/GI: Abdomen soft, non-tender, bowel sounds present. Incision: Clean, dry and intact. Fundus: Firm, non-tender at umbilicus. GENITOURINARY: Light to moderate bleeding. EXTREMITIES: No cyanosis or edema, non-tender, without signs of DVT. Medications and IVs Current Medications Medications (Trade) Dose Ordered Sig/Alma Delia Route Start Time Stop Time Status Last Admin (NS Flush) 2 ml BID IV FLUSH 11/07/16 21:00 11/07/16 21:26 (NS Flush) 2 ml UNSCH PRN IV FLUSH 11/07/16 11:45 (Mylicon Chew) 80 mg QID PRN PO 11/07/16 11:45 (Motrin) 600 mg Q6H PRN PO 11/07/16 11:45 11/09/16 08:35 (Percocet 5-325 Mg) 1 tab Q4H PRN PO 11/07/16 11:45 11/09/16 08:35 (Percocet 5-325 Mg) 2 tab Q4H PRN PO 11/07/16 11:45 (Chantel-Colace) 2 tab Q12H PRN PO 11/07/16 11:45 11/09/16 08:36 (Zofran Inj) 4 mg Q6H PRN IV PUSH 11/07/16 11:45 11/08/16 06:08 Assessment/Plan Assessment and Plan POD #2 ready for discharge RTO one week reviewed engorgement and signs to watch for Jennifer Peacock MD November 09, 2016 12:21
--- NOTE | 2016-11-09 12:39 | HHI.DCPOC ---
Discharge Care Plan Report Symptoms to Your Doctor -Temperate above 100.5 degrees -Redness, of incision or excessive or foul smelling drainage -Unusual pain or calf pain -Increased vaginal bleeding -Painful or difficulty urinating -Feelings of extreme sadness or anxiety after 2 weeks Goals to Promote Your Health * To prevent worsening of your condition and complications * To maintain your health at the optimal level Directions to Meet Your Goals Take your medications as prescribed Follow your dietary instruction Follow activity as directed Ensure plenty of rest for recovery Drink fluids for hydration Keep your appointments as scheduled Take your immunizations and boosters as scheduled If your symptoms worsen call your PCP, if no PCP go to Urgent Care Center or Emergency Room Smoking is Dangerous to Your Health. Avoid second hand smoke Call the 24-hour crisis hotline for domestic abuse at Jennifer Peacock MD November 09, 2016 12:38
== END 2016-11-09 14:07 | disposition home or self-care (01) | DRG 766 ==
LOC: H2EA 10:17 → H1EA 11-07 12:56
PROVIDERS: ADMIT Obstetrics & Gynecology; ATTEND Obstetrics & Gynecology
PROC: 3E0P7GC Introduction of Other Therapeutic Substance into Female Reproductive, Via Natural or Artificial Opening (ICD-10-PCS; 2016-11-06)
PROC: 10907ZC Drainage of Amniotic Fluid, Therapeutic from Products of Conception, Via Natural or Artificial Opening (ICD-10-PCS; 2016-11-06)
PROC: 3E0E3GC Introduction of Other Therapeutic Substance into Products of Conception, Percutaneous Approach (ICD-10-PCS; 2016-11-06)
PROC: 10D00Z1 Extraction of Products of Conception, Low, Open Approach (ICD-10-PCS; principal; 2016-11-07)
PROC: 00HU33Z Insertion of Infusion Device into Spinal Canal, Percutaneous Approach (ICD-10-PCS; 2016-11-07)
PROC: 3E0R3CZ (ICD-10-PCS; 2016-11-07)
DX: O41.03X0 Oligohydramnios, third trimester, not applicable or unspecified (principal); O76 Abnormality in fetal heart rate and rhythm complicating labor and delivery; Z3A.38 38 weeks gestation of pregnancy; Z37.0 Single live birth
CPT/HCPCS: 59025; 76818; 76820; 80053; 81001; 84550; 85025; 85027; 86900; 86901; 88307; 90715; J0131; J0690; J2274; J2405; J2590; J7030; J7040; J7120